=== PATIENT | female | born 1985 | race Caucasian/White ===

== ENCOUNTER 2021-11-04 11:21 | Emergency (ER) | payer MEDICAID, SELFPAY ==
[2021-11-04 11:24] VITALS: BP 130/79; PULSE 82; RESP 14; TEMP 36.6; O2SAT 97; BMI 27.3
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
[2021-11-04] MEDS: Ondansetron ODT 4 MG Tablet PO (11:46)
[2021-11-04] MEDS: HYDROcodone Bitartrate/Apap 5/325 Tablet PO (11:46)
--- NOTE | 2021-11-04 11:49 | ED.RN ---
pt's son at bedside. son is verbally aggressive and cussing at this rn. pt requesting that son be evaluated as well, son states that he will be in the same room at his mother. when advised that he may be placed in another, son states, yeah that's not going to happen. this rn was attempting to speak with pt and administer medications and son said, did you hear what i said?
--- NOTE | 2021-11-04 11:52 | RAD_ITS ---
HISTORY: neck pain. TECHNIQUE: Cervical spine 3 views. COMPARISON: None. FINDINGS: VERTEBRAE: Vertebral body heights maintained. No acute fracture identified. ALIGNMENT: No significant anterior or posterior subluxation. Straightening of the cervical lordosis. INTERVERTEBRAL DISCS: Disc heights preserved. SOFT TISSUES: No significant prevertebral soft tissue swelling. RAD/Cerv Spine 2 or 3 Views IMPRESSION: No acute fracture or dislocation identified in the cervical spine. Electronically Signed: Radha Collins MD at 12:18 EDT ,
[2021-11-04] MEDS: DiphenhydrAMINE 50 MG/ML Syringe IM (13:05)
[2021-11-04] MEDS: proCHLORPERazine 10 MG/2 ML Vial 5 MG IM (13:05)
--- NOTE | 2021-11-04 13:10 | ED.RN ---
Pt declined IV placement. Dr Delacruz notified and meds changed to IM. pt made aware they may not be as effective and they will take longer to work.
[2021-11-04 14:07] VITALS: RESP 18; O2SAT 99
[2021-11-04 14:08] VITALS: BP 116/84; PULSE 59
[2021-11-04] MEDS: proMETHazine 25 MG Tablet 12.5 MG PO (14:09)
== END 2021-11-04 14:11 | disposition home or self-care (01) ==
PROVIDERS: Emergency Provider Emergency Medicine; Visit Provider Emergency Medicine
DX: S16.1XXA Strain of muscle, fascia and tendon at neck level, initial encounter (principal); M54.6 Pain in thoracic spine; V89.9XXA Person injured in unspecified vehicle accident, initial encounter; F32.A Depression, unspecified; F41.9 Anxiety disorder, unspecified; Z79.899 Other long term (current) drug therapy
CPT/HCPCS: 72040; 90471; 96372; 99284; A4216